=== PATIENT | female | born 1965 | race Caucasian/White ===

== ENCOUNTER 2017-06-22 14:08 | Emergency (ER) | payer MEDICAID ==
[~2017-06-22] VITALS: Ht 165.1 cm; Wt 65.8 kg
[2017-06-22 15:05] LABS: *URINE HCG, QUAL NEGATIVE (NEGATIVE)
[2017-06-22 15:07] LABS: *BILIRUBIN,URIN NEGATIVE (NEGATIVE); *BLOOD, URINE NEGATIVE (NEGATIVE); *CLARITY,URINE CLEAR (CLEAR); *COLOR,URINE YELLOW (YELLOW); *KETONES,URINE NEGATIVE (NEGATIVE); *PROTEIN,URINE NEGATIVE (NEGATIVE); *UROBILINOGEN,URINE 0.2 E.U./dl (NORMAL); LEUKOCYTE ESTERASE ,URINE TRACE (NEGATIVE); NITRITE, URINE NEGATIVE (NEGATIVE); UGLUCOSE NEGATIVE (NEGATIVE)
[2017-06-22 15:13] LABS: SQUAMOUS EPITHELIAL CELL,UR FEW /HPF (NONE SEEN)
--- NOTE | 2017-06-22 15:19 | NUR ---
Female calculation reviewer accompanied female patient for (dr Calderon).
[2017-06-22 15:51] LABS: BASOPHILS # (AUTO) 0.1 K/uL (0.0-8.0); BASOPHILS % (AUTO) 0.8 % (0.0-2.0); EOSINOPHILS # (AUTO) 0.3 K/uL (0.0-0.7); EOSINOPHILS % (AUTO) 4.3 % (0.0-7.0); HEMATOCRIT 40.8 % (31.2-41.9); HEMOGLOBIN 14.2 g/dL (10.9-14.3); LYMPHOCYTES # (AUTO) 2.9 K/uL (20.0-40.0); MEAN CORPUSCULAR HEMOGLOBIN 30.3 uug (24.7-32.8); MEAN CORPUSCULAR HGB CONC 35 g/dL (32.3-35.6); MONOCYTES # (AUTO) 0.5 K/uL (2.0-10.0); MONOCYTES % (AUTO) 6.6 % (0.0-11.0); NEUTROPHILS # (AUTO) 3.6 K/uL (1.8-8.9); NEUTROPHILS % (AUTO) 49.3 % (38.5-71.5); PLATELET COUNT (AUTO) 264 K/uL (179-408); RED BLOOD CELL COUNT(AUTO) 4.69 MIL/uL (3.63-4.92); WHITE BLOOD COUNT (AUTO) 7.3 K/uL (3.8-11.8)
[2017-06-22 15:58] LABS: CREATININE 0.7 mg/dL (0.6-1.3); POTASSIUM 4.2 mmol/L (3.5-5.1)
[2017-06-22 16:04] LABS: BILIRUBIN,DIRECT 0.1 mg/dL (0.0-0.2); BILIRUBIN,TOTAL 0.4 mg/dL (0.2-1.0); TOTAL PROTEIN, SERUM 8.3 g/dL (6.4-8.2)
--- NOTE | 2017-06-22 16:15 | NUR ---
Female service associate accompanied female patient for ([employer]).
--- NOTE | 2017-06-22 16:25 | NUR ---
Pt out of Er for CT.
[2017-06-22 17:18] VITALS: BP 112/70
--- NOTE | 2017-06-22 17:19 | NUR ---
Patient discharged to home in stable conditon. Written and verbal after care instructions given. Patient verbalizes understanding of instructions.
== END 2017-06-22 17:25 | disposition home or self-care (01) ==
LOC: ER 14:09
DX: R10.2 Pelvic and perineal pain (principal); K59.00 Constipation, unspecified; N83.209 Unspecified ovarian cyst, unspecified side; Z85.3 Personal history of malignant neoplasm of breast
CPT/HCPCS: 36415; 70030-TC; 71045; 76856; 83690; 84703; 85025; 85730; A4663

== ENCOUNTER 2019-06-04 07:01 | Emergency (ER) | payer MEDICAID, OTHER ==
[~2019-06-04] VITALS: Ht 165.1 cm; Wt 65.8 kg
--- NOTE | 2019-06-04 07:24 | NUR ---
Dr. Fernandez at bedside for [facility]
--- NOTE | 2019-06-04 07:35 | NUR ---
Patient discharged to home in stable conditon. Written and verbal after care instructions given. Patient verbalizes understanding of instructions. Patient ambulating with steady gait
[2019-06-04 07:37] VITALS: BP 116/68
== END 2019-06-04 07:35 | disposition home or self-care (01) ==
LOC: ER 07:01
DX: J11.1 Influenza due to unidentified influenza virus with other respiratory manifestations (principal); Z91.013 Allergy to seafood
CPT/HCPCS: A4663